=== PATIENT | female | born 1965 | race Two or more races ===

== ENCOUNTER 2020-11-27 10:15 | Inpatient (IN) | payer OTHER ==
[~2020-11-27] VITALS: Ht 165.1 cm; Wt 64.0 kg
[2020-11-27] MEDS ORDERED: PROZAC20 MG PO (16:09)
[2020-11-27] MEDS ORDERED: CLONAZEPAM0.25 MG PO (16:10)
[2020-11-27] MEDS ORDERED: COZAAR25 MG PO (16:10)
[2020-11-27] MEDS ORDERED: SYNTHROID112 MCG PO (16:10)
[2020-11-27] MEDS ORDERED: ZYRTEC10 M3 PO (16:11)
[2020-11-27] MEDS ORDERED: VALTREX1000 MG PO (16:11)
== END 2020-12-02 11:55 | disposition home or self-care (01) | DRG 737 ==
LOC: SURH 10:15 → OB/GYN 11-30 06:00 → O/R 11-30 06:00 → OB/GYN 11-30 11:32
PROVIDERS: ADMIT Obstetrics & Gynecology Gynecologic Oncology; ATTEND Obstetrics & Gynecology Gynecologic Oncology
PROC: 0UT7FZZ Resection of Bilateral Fallopian Tubes, Via Natural or Artificial Opening With Percutaneous Endoscopic Assistance (ICD-10-PCS; 2020-11-30)
PROC: 07BC4ZZ Excision of Pelvis Lymphatic, Percutaneous Endoscopic Approach (ICD-10-PCS; 2020-11-30)
PROC: 0DBU4ZZ Excision of Omentum, Percutaneous Endoscopic Approach (ICD-10-PCS; 2020-11-30)
PROC: 0BBT4ZX Excision of Diaphragm, Percutaneous Endoscopic Approach, Diagnostic (ICD-10-PCS; 2020-11-30)
PROC: 0UT2FZZ Resection of Bilateral Ovaries, Via Natural or Artificial Opening With Percutaneous Endoscopic Assistance (ICD-10-PCS; principal; 2020-11-30 09:30)
DX: C56.1 Malignant neoplasm of right ovary (principal); C77.1 Secondary and unspecified malignant neoplasm of intrathoracic lymph nodes; N80.0 Endometriosis of uterus; D25.1 Intramural leiomyoma of uterus; I11.9 Hypertensive heart disease without heart failure; E03.8 Other specified hypothyroidism; R97.1 Elevated cancer antigen 125 [CA 125]

== ENCOUNTER 2021-03-15 06:06 | Day surgery (SDC) | payer OTHER ==
[~2021-03-15 06:06] MED LIST: CLONAZEP PO; CLONAZEPAM0.25 MG PO; COZAAR25 MG PO; LYNPARZA PO; PREVACID PO; PROSCAR5 MG PO; PROZAC20 MG PO; SYNTHROID112 MCG PO; VALTREX1000 MG PO; ZYRTEC10 M3 PO
[2021-03-15] MEDS ORDERED: PROTONIX40 MG PO (11:24)
[2021-03-15] MEDS ORDERED: DICLOFENAC SODI75 MG PO (11:24)
[2021-03-15] MEDS ORDERED: PERCOCET 5-3251 EACH PO (11:24)
[2021-03-15] MEDS ORDERED: ZOFRAN8 MG PO (11:25)
[2021-03-15] MEDS ORDERED: DICY20TA PO (11:25)
== END 2021-03-15 16:35 | disposition home or self-care (01) ==
LOC: CIR.AMB 06:06
PROVIDERS: ATTEND Surgery
DX: K80.10 Calculus of gallbladder with chronic cholecystitis without obstruction (principal); Z20.822 Contact with and (suspected) exposure to COVID-19

== ENCOUNTER 2023-05-09 08:25 | Day surgery (SDC) | payer OTHER ==
[2023-05-07 09:33] LABS: PH,URINE 5.5 (5.0-8.0); URINE APPEARANCE Clear; URINE BILIRRUBIN Negative (NEGATIVE); URINE BLOOD Negative; URINE COLOR Yellow; URINE GLUCOSE Negative (NEGATIVE); URINE LEUKOCYTE Moderate; URINE NITRATE Negative; URINE PROTEIN Negative (NEGATIVE); URINE UROBILINOGEN 0.2 E.U./dl
[2023-05-07 09:38] LABS: URINE BACTERIA 1069.6 uL (0.0-1933); URINE EPITHELIAL CELLS 29.6 uL (0.0-38.8); URINE RBC 7.7 uL (0.0-20.8); URINE WBC 43.8 uL (0.0-23.2)
[~2023-05-09 08:25] MED LIST changes: +DICLOFENAC SODI75 MG PO; +DICY20TA PO; +PERCOCET 5-3251 EACH PO; +PROTONIX40 MG PO; +ZOFRAN8 MG PO
[2023-05-09] MEDS ORDERED: TRAM1TAB98 PO (10:16)
== END 2023-05-09 15:10 | disposition home or self-care (01) ==
LOC: CIR.AMB 08:25
PROVIDERS: ATTEND Surgery
DX: C56.1 Malignant neoplasm of right ovary (principal); I10 Essential (primary) hypertension

== ENCOUNTER 2024-07-05 11:30 | Inpatient (IN) | payer OTHER ==
[~2024-07-05] VITALS: Ht 166.4 cm; Wt 66.2 kg
[~2024-07-05 11:30] MED LIST changes: +TRAM1TAB98 PO
[2024-07-05] MEDS ORDERED: PROTONIX20 MG PO (13:27)
[2024-07-05] MEDS ORDERED: PEPCID AC20 MG PO (13:27)
[2024-07-05 13:28] VITALS: BP 169/95
[2024-07-05 21:37] LABS: RH POSITIVE
[2024-07-08] MEDS ORDERED: KETOROLAC TROMETHAMINE 30 MG VIAL IV ONE (10:00)
[2024-07-08] MEDS ORDERED: RINGERS SOLUTION,LACTATED 1,000 ML IV SCH (10:00)
[2024-07-08] MEDS ORDERED: MORPHINE SULFATE 4 MG/ML CARTRIDGE IV PRN (10:00)
[2024-07-08] MEDS ORDERED: MORPHINE SULFATE 4 MG/ML VIAL IV ONE ×2 (10:55→11:25)
[2024-07-08] MEDS ORDERED: POVIDONE-IODINE 118 ML BOTT TOP ONE (11:00)
[2024-07-08] MEDS ORDERED: CEFAZOLIN SODIUM 1,000 MG VIAL IV ONE (11:00)
[2024-07-08] MEDS ORDERED: METRONIDAZOLE/SODIUM CHLORIDE 500 MG/100 ML PIGGYBACK IV ONE (11:00)
[2024-07-08] MEDS ORDERED: KETOROLAC TROMETHAMINE 30 MG VIAL ONE (11:49)
[2024-07-08] MEDS ORDERED: ACETAMINOPHEN 500 MG GEL..CAP PO SCH (12:00)
[2024-07-08 12:32] LABS: HEMATOCRIT 35.1 % (36.0-45.00); HEMOGLOBIN 11.7 g/dL (12.0-15.00); MEAN CELL VOLUME 99.6 fL (80.00-100.00); MEAN CORPUSCULAR HEMOGLOBIN 33.1 pg (27.00-32.0); MEAN CORPUSCULAR HGB CONC 33.3 g/dl (32.0-36.0); PLATELET COUNT 159 K/uL (150-450); RED BLOOD COUNT 3.53 M/uL (4.00-6.00); RED CELL DISTRIBUTION WIDTH 13.1 % (11.5-14.5)
[2024-07-08 13:26] LABS: ALBUMIN 3.1 gm/dL (3.4-5.0); CALCIUM 8.6 mg/dL (8.5-10.1); CREATININE SERUM 0.78 mg/dL (0.55-1.02); GFR 76.12; PHOSPHOROUS 3.6 mg/dL (2.5-4.9); POTASSIUM 4.11 mEq/L (3.5-5.1)
[2024-07-08 14:59] VITALS: BP 135/75
[2024-07-08] MEDS ORDERED: SIMETHICONE 125 MG CAPSULE PO SCH (17:00)
[2024-07-08] MEDS ORDERED: CEFAZOLIN SODIUM 1,000 MG VIAL IV SCH (17:00)
[2024-07-08] MEDS ORDERED: METOCLOPRAMIDE HCL 5 MG/ML VIAL IV SCH (17:00)
[2024-07-08 20:51] VITALS: BP 122/74
[2024-07-08] MEDS ORDERED: DOCUSATE SODIUM 100MG CAP PO SCH (21:00)
[2024-07-08] MEDS ORDERED: FAMOTIDINE/PF 20 MG/2 ML VIAL IV PUSH SCH (21:00)
[2024-07-08] MEDS ORDERED: CELECOXIB 200 MG CAPSULE PO SCH (21:00)
[2024-07-08] MEDS ORDERED: GABAPENTIN 300 MG CAPSULE PO SCH (21:00)
[2024-07-09 00:50] VITALS: BP 119/69
[2024-07-09 01:59] LABS: HEMATOCRIT 31.2 % (36.0-45.00); MEAN CELL VOLUME 100.3 fL (80.00-100.00); MEAN CORPUSCULAR HGB CONC 34.2 g/dl (32.0-36.0); RED BLOOD COUNT 3.11 M/uL (4.00-6.00); RED CELL DISTRIBUTION WIDTH 12.9 % (11.5-14.5)
[2024-07-09 02:14] LABS: HEMOGLOBIN 10.7 g/dL (12.0-15.00); MEAN CORPUSCULAR HEMOGLOBIN 34.4 pg (27.00-32.0)
[2024-07-09 02:15] LABS: PLATELET COUNT 131 K/uL (150-450)
[2024-07-09 02:28] LABS: ALBUMIN 2.9 gm/dL (3.4-5.0); CALCIUM 8.3 mg/dL (8.5-10.1); CREATININE SERUM 0.79 mg/dL (0.55-1.02); GFR 75.01; POTASSIUM 3.93 mEq/L (3.5-5.1)
[2024-07-09] MEDS ORDERED: LEVOTHYROXINE SODIUM 112 MCG TABLET PO SCH (06:00)
[2024-07-09 08:00] VITALS: BP 124/62
[2024-07-09] MEDS ORDERED: ENOXAPARIN SODIUM 40 MG/0.4 ML SYRINGE SUBCUTANEO SCH (09:00)
[2024-07-09] MEDS ORDERED: LOSARTAN POTASSIUM 50 MG TABLET PO SCH (09:00)
[2024-07-09] MEDS ORDERED: FLUOXETINE HCL 10 MG CAPSULE PO SCH (09:00)
[2024-07-09] MEDS ORDERED: ONDANSETRON 4 MG TAB.RAPDIS PO NR (13:00)
[2024-07-09 15:15] VITALS: BP 114/75
== END 2024-07-09 15:17 | disposition home or self-care (01) | DRG 749 ==
LOC: O/R 07-08 05:30 → OB/GYN 07-08 05:30 → SURH 07-08 07:00 → OB/GYN 07-08 13:36
PROVIDERS: Obstetrics & Gynecology; ADMIT Obstetrics & Gynecology Gynecologic Oncology; ATTEND Obstetrics & Gynecology Gynecologic Oncology
PROC: 07BC4ZZ Excision of Pelvis Lymphatic, Percutaneous Endoscopic Approach (ICD-10-PCS; 2024-07-08)
PROC: 0TBB4ZZ Excision of Bladder, Percutaneous Endoscopic Approach (ICD-10-PCS; 2024-07-08)
PROC: 0WBH4ZZ Excision of Retroperitoneum, Percutaneous Endoscopic Approach (ICD-10-PCS; 2024-07-08)
PROC: 0TB64ZZ Excision of Right Ureter, Percutaneous Endoscopic Approach (ICD-10-PCS; 2024-07-08)
PROC: 0DBW4ZZ Excision of Peritoneum, Percutaneous Endoscopic Approach (ICD-10-PCS; principal; 2024-07-08 07:00)
DX: C56.1 Malignant neoplasm of right ovary (principal); C77.5 Secondary and unspecified malignant neoplasm of intrapelvic lymph nodes; C79.82 Secondary malignant neoplasm of genital organs; C79.19 Secondary malignant neoplasm of other urinary organs; C79.11 Secondary malignant neoplasm of bladder; C79.89 Secondary malignant neoplasm of other specified sites; C56.2 Malignant neoplasm of left ovary